=== PATIENT | male | born 1980 | race African-American/Black ===

== ENCOUNTER 2017-01-20 13:16 | Emergency (ER) | payer SELFPAY ==
[2017-01-20 13:41] VITALS: BP 146/106
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
== END 2017-01-20 14:56 | disposition home or self-care (01) ==
LOC: UCEAST 13:16
DX: J32.9 Chronic sinusitis, unspecified (principal); R42 Dizziness and giddiness; K21.9 Gastro-esophageal reflux disease without esophagitis; I10 Essential (primary) hypertension; F12.90 Cannabis use, unspecified, uncomplicated; F17.210 Nicotine dependence, cigarettes, uncomplicated
CPT/HCPCS: 99212; G0463

== ENCOUNTER 2017-02-24 20:26 | Emergency (ER) | payer OTHER ==
[2017-02-24 22:01] VITALS: BP 145/89
--- NOTE | 2017-02-24 23:12 | UC ---
Abdominal Pain Male HPI - HPI Summary HPI Summary: upper abd pain and diarrhea x 4 days. N, vomiting yest, none today. Diarrhea is brown, 3-4 x /day, no blood, no turning more green. States he thinks his children are now getting diarrhea too. No fever. Also has just gotten insurance so has not gotten a doctor yet, but needs to continue his lisinopril, so is asking for a refill of his BP meds. Also missed work due to his abd pain yest and today, needs a work release. - History of Current Complaint Chief Complaint: UCAbdominalPain Stated Complaint: VOMITING, AND ABDOMINAL PAIN Time Seen by Provider: 02/24/17 22:29 Hx Obtained From: Patient Onset/Duration: Gradual Onset, Lasting Days, Still Present Timing: Constant Severity Initially: Moderate Severity Currently: Moderate Pain Intensity: 3 Pain Scale Used: 0-10 Numeric Location: Epigastric Radiates: No Character: Burning Aggravating Factor(s):: Nothing Alleviating Factor(s): Nothing Associated Signs And Symptoms: Positive: Vomiting, Diarrhea. Negative: Diaphoresis, Fever, Cough, Chest Pain, Blood in Stool, Urinary Symptoms, Decreased Appetite - Allergies/Home Medications Allergies/Adverse Reactions: Allergies Allergy/AdvReac Type Severity Reaction Status Date / Time No Known Allergies Allergy Verified 07/15/16 13:45 PMH/Surg Hx/FS Hx/Imm Hx Previously Healthy: No Cardiovascular History: Hypertension GI/ History: Gastroesophageal Reflux - Surgical History Surgical History: Yes Surgery Procedure, Year, and Place: jaw/neck/facial surgery 1995 from [facility] - Family History Known Family History: Positive: Hypertension, Diabetes - Social History Occupation: Employed Full-time Lives: With Family Alcohol Use: Occasionally Substance Use Type: Marijuana Substance Use Comment - Amount & Last Used: DAILY Smoking Status (MU): Heavy Every Day Tobacco Smoker Type: Cigarettes Amount Used/How Often: 1 ppd Length of Time of Smoking/Using Tobacco: 20 years Review of Systems Constitutional: Negative Skin: Negative Eyes: Negative ENT: Negative Respiratory: Negative Cardiovascular: Negative Gastrointestinal: Abdominal Pain, Vomiting, Diarrhea Genitourinary: Negative Motor: Negative Neurovascular: Negative Musculoskeletal: Negative Neurological: Negative Psychological: Negative All Other Systems Reviewed And Are Negative: Yes Physical Exam Triage Information Reviewed: Yes Appearance: Well-Nourished, Ill-Appearing, Pain Distress Vital Signs: Initial Vital Signs Temp 97.6 F 06/07/17 21:44 Pulse 73 02/24/17 21:44 Resp 20 02/24/17 21:44 BP 145/89 02/24/17 21:44 Pulse Ox 100 02/24/17 21:44 Vital Signs Reviewed: Yes Eyes: Positive: Conjunctiva Clear ENT: Positive: Hearing grossly normal. Negative: Muffled/hoarse voice Neck: Positive: Supple, Nontender, No Lymphadenopathy Respiratory: Positive: Lungs clear, Normal breath sounds, No respiratory distress Cardiovascular: Positive: RRR, No Murmur, Pulses Normal, Brisk Capillary Refill Abdomen Description: Positive: Nontender, No Organomegaly, Soft. Negative: CVA Tenderness (R), CVA Tenderness (L), Distended, Guarding, Hepatomegaly, McBurney' s Point Tenderness, Peritoneal Signs, Pulsatile Mass, Splenomegaly Bowel Sounds: Positive: Present Musculoskeletal: Positive: Strength Intact, ROM Intact Neurological: Positive: Alert, Muscle Tone Normal Psychological Exam: Normal Skin Exam: Normal Abd Pain Male Course/Dx - Course Course Of Treatment: pt declines doing stool cultures. States if he is worse, he will go to the ED. - Differential Dx/Clinical Impression Differential Diagnosis/HQI/PQRI: Appendicitis, Diverticulitis, Hepatitis, Peptic Ulcer Disease, Other - GERD Provider Diagnoses: epigastric pain. HTN in poor control. diarrhea Discharge - Discharge Plan Condition: Stable Disposition: HOME Prescriptions: Lisinopril TAB* [Prinivil TAB 10 MG*] 20 mg PO DAILY #60 tab Ondansetron ODT TAB* [Zofran 4 MG Odt TAB*] 4 mg PO Q8H PRN #12 tab.odt PRN Reason: Nausea Pantoprazole TAB (NF) [Protonix TAB (NF)] 20 mg PO DAILY #20 tab Patient Education Materials: Gastroesophageal Reflux Disease (ED), Acute Diarrhea (ED), Abdominal Pain (ED) Forms: *Work Release Referrals: [facility] [Outside] - 2 Days (call to get established with a primary care provider as soon as possible. ) Additional Instructions: Urgent care has refilled your BP medicines twice now. We cannot continue to refill your blood pressure medicines. You need to get a primary care provider. Call the number to get established. You may take the ondansetron and protonix for abd pain and vomiting. You may also take immodium (that you can buy without a prescription) for the diarrhea. Go to the emergency room if you have any new or worsening symptoms.
[2017-02-24] MEDS ORDERED: Ondansetron ODT TAB* 4 MG PO ONE (23:14)
== END 2017-02-24 23:25 | disposition home or self-care (01) ==
LOC: UCEAST 20:26
DX: R10.13 Epigastric pain (principal); R19.7 Diarrhea, unspecified; I10 Essential (primary) hypertension; K21.9 Gastro-esophageal reflux disease without esophagitis; F12.90 Cannabis use, unspecified, uncomplicated; F17.210 Nicotine dependence, cigarettes, uncomplicated
CPT/HCPCS: 99212; A9270-GY; G0463

== ENCOUNTER 2017-09-24 10:03 | Day surgery (SDC) | payer MEDICAID ==
[~2017-09-24 10:03] MED LIST: Buffered Lidocaine 0.9% SYRIN* 5 ML/SYR SYRINGE INTRADERM ONE
[2017-09-24] MEDS ORDERED: Buffered Lidocaine 0.9% SYRIN* 5 ML/SYR SYRINGE ONE ×3 (10:12)
[2017-09-24] MEDS ORDERED: Oxymetazoline 0.05% NASAL SPR* 15 ML BTL ONE ×3 (10:24→12:24)
[2017-09-24] MEDS ORDERED: Lidocaine 1% MPF wEPI 200,000* 30 ML SDV ONE ×3 (12:24)
[2017-09-24] MEDS ORDERED: Lidocaine 4% TOPICAL* 50 ML TOP.SOLN ONE ×3 (12:25)
[2017-09-24] MEDS ORDERED: Propofol* 10 MG/ML 20 ML BTL IV PUSH ONE ×2 (12:48)
[2017-09-24] MEDS ORDERED: fentaNYL* 50 MCG/ML 2 ML VIAL (100 MCG VIAL) ONE ×3 (12:48)
[2017-09-24] MEDS ORDERED: Lidocaine 2% PF * 5 ML VIAL ONE ×3 (12:48)
[2017-09-24] MEDS ORDERED: Ondansetron ODT TAB* 4 MG PO PRN (13:03)
[2017-09-24] MEDS ORDERED: fentaNYL* 50 MCG/ML 2 ML VIAL (100 MCG VIAL) IV PRN (13:03)
[2017-09-24] MEDS ORDERED: Naloxone* 0.4 MG/ML 1 ML VIAL IV PRN (13:03)
[2017-09-24] MEDS ORDERED: Ketorolac INJ* 30 MG/ML 1 ML VIAL IV PRN (13:03)
[2017-09-24 13:26] VITALS: BP 139/92
[2017-09-24] MEDS ORDERED: Ketorolac INJ* 30 MG/ML 1 ML VIAL ONE ×3 (13:54)
--- NOTE | 2017-09-25 10:46 | OP ---
DATE OF OPERATION: 09/24/17 - SDS DATE OF : 80 SURGEON: Paul Vance MD ANESTHESIOLOGIST: Ken Ramon MD ANESTHESIA: General PRE-OP DIAGNOSIS: Inferior turbinate hypertrophy. POST-OP DIAGNOSIS: Inferior turbinate hypertrophy. OPERATIVE PROCEDURE: Bilateral inferior turbinate reduction with submucous resection of the inferior turbinates under general laryngeal mask airway anesthesia. COMPLICATIONS: None. DISPOSITION: Good. SPECIMENS: None. ESTIMATED BLOOD LOSS: Minimum. DESCRIPTION OF PROCEDURE: The patient was taken to the operating room, placed in the supine position on the operating table, maintained with laryngeal mask airway anesthesia. He was draped for the surgery. His nose was packed with cottonoids impregnated with oxymetazoline and 4% lidocaine. These were removed. Using endoscopic guidance, the inferior turbinates were injected with 1% lidocaine, 1:200,000 epinephrine. An anterior incision was made in the inferior turbinates with a 15 blade. The Hunt elevator was used to elevate the soft tissue off the underlying bone. The inferior turbinate debrider was inserted in this pocket and the submucosa was debrided. The turbinates were then out-fractured. The patient tolerated the procedure well. No complications. Transferred to the recovery room in stable condition. [id number]/[facility] #: [id number] MTDJesus
[2017-09-27] MEDS ORDERED: Propofol* 10 MG/ML 20 ML BTL IV PUSH ONE (11:00)
== END 2017-09-24 14:15 | disposition home or self-care (01) ==
LOC: OR 10:03
PROVIDERS: ATTEND Otolaryngology
DX: J34.3 Hypertrophy of nasal turbinates (principal); I10 Essential (primary) hypertension; F17.210 Nicotine dependence, cigarettes, uncomplicated; R09.81 Nasal congestion; J31.0 Chronic rhinitis
CPT/HCPCS: A9270-GY; J1885; J2001; J2704; J3010

== ENCOUNTER 2017-10-25 14:49 | Emergency (ER) | payer OTHER ==
[2017-10-25 16:49] VITALS: BP 141/91
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
[2017-10-25] MEDS ORDERED: Albuterol/Ipratropium NEB.SOL* Albuterol 2.5 MG/Ipratropium 0.5 MG 3 ML INH ONE (17:42)
--- NOTE | 2017-10-25 18:11 | RAD ---
HISTORY: Cough COMPARISONS: April 18, 2015 VIEWS: 4: Frontal dual-energy and lateral views of the chest. FINDINGS: CARDIOMEDIASTINAL SILHOUETTE: The cardiomediastinal silhouette is normal. CRISTINA: The cristina are normal. PLEURA: The costophrenic angles are sharp. No pleural abnormalities are noted. LUNG PARENCHYMA: The lungs are clear. ABDOMEN: The upper abdomen is clear. There is no subphrenic gas. BONES AND SOFT TISSUES: No bone or soft tissue abnormalities are noted. OTHER: None. IMPRESSION: NO ACTIVE CARDIOPULMONARY DISEASE.
== END 2017-10-25 18:37 | disposition home or self-care (01) ==
LOC: UCEAST 14:49
DX: J32.9 Chronic sinusitis, unspecified (principal); J40 Bronchitis, not specified as acute or chronic; I10 Essential (primary) hypertension; F12.90 Cannabis use, unspecified, uncomplicated; Z71.6 Tobacco abuse counseling; F17.210 Nicotine dependence, cigarettes, uncomplicated
CPT/HCPCS: 71046; 87502; 99212; A9270-GY; G0463

== ENCOUNTER 2018-05-30 22:20 | Emergency (ER) | payer MEDICAID, OTHER ==
[2018-05-30 22:26] VITALS: BP 154/98
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
[2018-05-30] MEDS ORDERED: Ondansetron ODT TAB* 4 MG SL ONE (23:56)
[2018-05-30] MEDS ORDERED: Morphine VIAL* 10 MG/ML 1 ML VIAL IV ONE (23:56)
[2018-05-31 00:33] LABS: Hematocrit 37 % (42-52); Hemoglobin 12.5 g/dl (14.0-18.0); Mean Corpuscular HGB Conc 34 g/dl (31-36); Mean Corpuscular Hemoglobin 32 pg (27-31); Mean Corpuscular Volume 93 fL (80-94); Mean Platelet Volume 8.4 um3 (7.4-10.4); Platelet Count 260 10^3/ul (150-450); Red Blood Count 3.92 10^6/ul (4.00-5.40); Red Cell Distribution Width 13 % (10.5-15)
[2018-05-31 00:39] LABS: ABS Neutrophils 11.4 10^3/ul (1.5-7.7)
[2018-05-31 00:42] LABS: INR 0.92 (0.77-1.02)
[2018-05-31 00:52] LABS: EGFR Non-African American 91.4 (>60)
[2018-05-31 01:04] LABS: ABS Basophils 0.1 10^3/ul (0-0.2); ABS Eosinophils 0.3 10^3/ul (0-0.6); ABS Lymphocytes 2.3 10^3/ul (1.0-4.8); ABS Monocytes 1.9 10^3/ul (0-0.8); ABS Nucleated RBC 0 10^3/ul; Eosinophil % 1.7 % (0-6); Lymphocyte % 14.6 % (25-47); Nucleated Red Blood Cells % 0.1
[2018-05-31] MEDS ORDERED: Ketorolac INJ* 30 MG/ML 1 ML VIAL IV PUSH ONE (01:10)
[2018-05-31] MEDS ORDERED: Dibucaine 1% 28.35 GM TUBE PR ONE (01:10)
--- NOTE | 2018-05-31 01:14 | ED ---
Progress - Progress Note Progress Note: patient signed out by dr bravo pending pain management and labs for dispo. tried to reevaluate patient and states pain a little better but still did not tolerate exam well. appears to have some area of fluctuance near anus. attempted internal exam and patient was exquisitely tender and could not tolerate exam. labs wbc elevated at [address] shows: IMPRESSION: Left perianal abscess. Findings commonly associated with a fistula which is best characterized with MRI. Re-Evaluation - Re-Evaluation First Eval Re-Evaluation Time: 01:12 Change: Improved Comment: attempted rectal exam and patient did not tolerate exam well enough to get a good enough exam. suspect perirectal vs perianal abscess so will get CT to look at extend of abscess. Second Eval Re-Evaluation Time: 03:25 Change: Improved Comment: sitting more comfortable in bed Course/Dx - Course Course Of Treatment: 37 year old male presents with progressively worsen rectal pain. has history of hemorrhoids. no rectal bleeding. no fever. no history of MRSA, UC or crohns. patient was given pain medication but was unable to tolerate rectal exam well. appeared to have area of fluctuance on left buttock near anus but was unable to do a through exam so will get CT. labs wbc 16 with left shift. discussed case with dr chowdhury and states if patient is agreeable can see in office for drainage and should be placed on antibiotics. if needs pain control should be admitted with hospital. discussed options with patient admission vs going home and he would like to go home with pain meds. patient understand and agrees with plan. - Diagnoses Provider Diagnoses: Perianal abscess - Provider Notifications Discussed Care Of Patient With: Braxton Chowdhury Time Discussed With Above Provider: 15:15 Discharge - Sign-Out/Discharge Documenting (check all that apply): Receiving Sign-Out Receiving patient FROM: Hany Bravo - Discharge Plan Condition: Good Disposition: HOME Prescriptions: Amoxicillin/Clavulanate TAB* [Augmentin TAB 875*] 875 mg PO BID #19 tab Docusate CAP* [Colace Cap*] 100 mg PO BID #20 cap oxyCODONE/Acetamin 5/325 MG* [Percocet 5/325 TAB*] 1 tab PO Q6H PRN #8 tab MDD 4 PRN Reason: Pain Patient Education Materials: Rectal Abscess (ED) Referrals: Braxton Chowdhury MD [Medical Doctor] - Deo Greenwood NP [Primary Care Provider] - Additional Instructions: call surgery office today for an appointment Take augmentin twice a day for 10 days Take tyenlol or ibuprofen every 6 hours as needed for pain, take percocet every 4-6 hours for pain take colace twice a day Return to ED if develop any fever or any new or worsening symptoms - Billing Disposition and Condition Condition: GOOD Disposition: Home
[2018-05-31] MEDS ORDERED: Iohexol 300* (CONTRAST) 10 ML SDV IV ONE (01:35)
--- NOTE | 2018-05-31 03:03 | RAD ---
EXAM: CT Pelvis With Intravenous Contrast CLINICAL HISTORY: 37 years old, male; Condition or disease; Other: Hemorrhoids; Additional info: Rectal pain TECHNIQUE: Axial computed tomography images of the pelvis with intravenous contrast. All CT scans at this facility use at least one of these dose optimization techniques: automated exposure control; mA and/or kV adjustment per patient size (includes targeted exams where dose is matched to clinical indication); or iterative reconstruction. Coronal and sagittal reformatted images were created and reviewed. CONTRAST: 100 mL of OMNI 300 administered intravenously. COMPARISON: No relevant prior studies available. FINDINGS: Bowel: Visualized small bowel is normal in caliber. No masses or segmental wall thickening throughout the visualized colon. No obstruction. Appendix: Normal caliber appendix without wall thickening or adjacent inflammation. Intraperitoneal space: Normal. No pneumoperitoneum. No ascities. Bladder: Thin-walled bladder with no focal nodularity, perivesicular stranding, or calcifications. Reproductive: Normal sized prostate. Normal seminal vesicles. Bones/joints: No fractures. No suspicious bone lesions. Soft tissues: Peripherally enhancing low attenuating collection in the left perianal region deep to the levator ani muscle measuring 3.7 x 3.1 cm (series 2, image 46). Mild adjacent stranding. Vasculature: The vasculature demonstrates diffuse mild atherosclerotic calcification. No lower abdominal aortic aneurysm. Lymph nodes: Normal. No enlarged lymph nodes. IMPRESSION: Left perianal abscess. Findings commonly associated with a fistula which is best characterized with MRI.
[2018-05-31] MEDS ORDERED: Piperacillin/Tazobac ADVAN(*) 3.375 GM in NS 0.9% 100 ML* 100 ML IVPB ONE (03:07)
[2018-05-31] MEDS ORDERED: Amoxicillin/Clavulanate TAB* 875 MG PO ONE (03:17)
== END 2018-05-31 03:48 | disposition home or self-care (01) ==
LOC: ED 22:20
DX: K61.0 Anal abscess (principal); F17.210 Nicotine dependence, cigarettes, uncomplicated; Z87.19 Personal history of other diseases of the digestive system
CPT/HCPCS: 36415; 72193; 80053; 83605; 85025; 85610; 85730; 87040; 96374; 96375; 99283; A9270-GY; J1885; J2270; Q9967

== ENCOUNTER 2018-09-15 13:36 | Emergency (ER) | payer MEDICAID, OTHER ==
[2018-09-15] MEDS ORDERED: Ketorolac INJ* 60 MG/2 ML VIAL IM ONE (15:04)
[2018-09-15] MEDS ORDERED: Penicillin VK TAB* 250 MG PO ONE (15:05)
[2018-09-15 16:05] VITALS: BP 168/96
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
== END 2018-09-15 16:04 | disposition home or self-care (01) ==
LOC: ED 13:36
DX: K04.7 Periapical abscess without sinus (principal); K02.9 Dental caries, unspecified; I10 Essential (primary) hypertension; K21.9 Gastro-esophageal reflux disease without esophagitis; Z87.891 Personal history of nicotine dependence
CPT/HCPCS: 96372; 99282; A9270-GY; J1885

== ENCOUNTER 2018-09-16 18:55 | Emergency (ER) | payer OTHER ==
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
[2018-09-16] MEDS ORDERED: HYDROcodone/ACETAMIN 5-325 MG* 1 TAB PO ONE (19:37)
[2018-09-16 19:52] VITALS: BP 150/108
== END 2018-09-16 19:55 | disposition home or self-care (01) ==
LOC: UCEAST 18:55
DX: K08.89 Other specified disorders of teeth and supporting structures (principal); I10 Essential (primary) hypertension; J45.909 Unspecified asthma, uncomplicated; K21.9 Gastro-esophageal reflux disease without esophagitis; Z79.899 Other long term (current) drug therapy; Z87.891 Personal history of nicotine dependence
CPT/HCPCS: 99212; G0463

== ENCOUNTER 2019-05-31 17:10 | Emergency (ER) | payer OTHER ==
[2019-05-31] MEDS ORDERED: Ibuprofen TAB* 400 MG PO ONE (19:27)
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
[2019-05-31 19:47] VITALS: BP 136/94
--- NOTE | 2019-06-01 15:23 | UC ---
- Progress Note Progress Note: Final radiologist reading for right ankle x-ray from July 31, 2019 comes back as soft tissue swelling with no evidence of fracture. There is no provider reading from the same date however the diagnosis was ankle sprain therefore there is no discrepancy. Course/Dx - Diagnoses Provider Diagnoses: Right ankle sprain, Right ankle injury, Uncontrolled hypertension Discharge ED - Sign-Out/Discharge Documenting (check all that apply): Patient Departure All imaging exams completed and their final reports reviewed: Yes - Discharge Plan Condition: Stable Disposition: HOME Prescriptions: Ibuprofen TAB* [Motrin TAB* 600 MG] 600 mg PO Q6H PRN #30 tab PRN Reason: moderate pain Patient Education Materials: Ankle Sprain (ED) Forms: *Work Release Referrals: [facility] [Provider Group] - 1 Week Deo Greenwood NP [Primary Care Provider] - 3 Days Esme Cesar MD [Medical Doctor] - 1 Week Additional Instructions: 1-Please take Ibuprofen PO q6-8hrs prn after meals after meals as directed to alleviate pain and swelling. 2-Please apply ice, keep your ankle immobilized with the CAM boot. Avoid weight bearing using the crutches. Elevate your ankle 3- Please f/u with Orthopedic DR Cesar or Sport Medicine in 1 week is not improvement of symptoms for further evaluation and treatment. - Billing Disposition and Condition Condition: STABLE Disposition: Home
== END 2019-05-31 20:51 | disposition home or self-care (01) ==
LOC: UCEAST 17:10
DX: S93.401A Sprain of unspecified ligament of right ankle, initial encounter (principal); W22.8XXA Striking against or struck by other objects, initial encounter; Y93.K9 Activity, other involving animal care; Y92.9 Unspecified place or not applicable; Y99.8 Other external cause status; I10 Essential (primary) hypertension; K21.9 Gastro-esophageal reflux disease without esophagitis; F17.210 Nicotine dependence, cigarettes, uncomplicated
CPT/HCPCS: 99213; A9270-GY; G0463